=== PATIENT | female | born 2000 | race Caucasian/White ===

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

== ENCOUNTER 2022-02-06 07:15 | Emergency (ER) | payer BC, MEDICAID, SELFPAY ==
[2020-09-26 11:37] VITALS: BP 117/75; BMI 34.4
[2022-02-06 07:24] VITALS: BP 122/83; PULSE 84; RESP 15; TEMP 36.9; O2SAT 97
--- NOTE | 2022-02-06 07:47 | W.ED.EAR ---
HPI - Ear Problem General: Chief complaint: Ear Stated complaint: can barely speak Time Seen by Provider: 02/06/22 07:20 Source: patient Mode of arrival: ambulatory History of Present Illness: 22-year-old female presents to the emergency room with complaints of right ear pain. Patient states she has recurrent otitis media in the past. She also states it is causing discomfort radiating into her jaw on the right side. She has cotton in her ears when she arrives states she has not had any drainage but just having the cotton and seems to alleviate some of the discomfort. No fever sweats chills or rash no cough or shortness of breath MD Complaint: ear pain Location: right ear Duration: constant Severity: moderate Relieving factors: other (Cotton in the external canal) Exacerbating factors: nothing Discharge from ear: no Associated symptoms: Reports ear or mastoid pain and external ear pain; Denies fever(s), headache(s), hearing loss, neck pain, rhinorrhea or tinnitus Treatment prior to arrival: none Review of Systems Const: Denies: fever(s), chills, fatigue or malaise ENMT: Reports: ear or mastoid pain; Denies: tinnitus Card: Denies: chest pain, palpitations, irregular heart rhythm, edema, dyspnea on exertion or orthopnea Resp: Denies: dyspnea, productive cough or non-productive cough GI: Denies: abdominal pain, nausea, vomiting, hematemesis, coffee ground emesis, diarrhea, constipation, bloating, hematochezia or melena : Denies: flank pain, difficulty voiding, dysuria, urinary frequency or urinary urgency Musc: Denies: neck pain Skin/Breast: Denies: rash or pruritus Neuro: Denies: headache(s) PFSH ED PFSH: Medical History (Updated 02/06/22 @ 07:52 by Fredrick Gonzalez DO) Psychiatric care Family History (Updated 09/01/20 @ 09:05 by Jyoti Zhang RN) Other Cancer Diabetes Social History (Updated 09/01/20 @ 09:10 by Joyti Zhang RN) Smoking and tobacco status: former smoker Quit status (tobacco): has quit using tobacco Year quit tobacco: 2020 Second hand smoke exposure: Yes Alcohol intake: never Adopted: No Caregiver/support person: No Lives independently: Yes Household members: family Housing: House Marital status: Single Number of children: 0 Number of grandchildren: 0 Highest education level completed: 10th Grade service: No Current occupational status: unemployed Pets and animals: Yes Pets & animals: cat(s) and dog(s) Pets & animal details: gigi stone History of recent travel: No Leisure activites: other Leisure activities details: cleaning, takes care of her mom Current gender identity: Female Marsha/Uatsdin: None Financial difficulty paying for basics: Somewhat Hard Female Reproductive History: Date of last menstrual period: 06/24/20 Spontaneous abortions: No Physical Exam Const: COMMON NORMALS: no acute distress GENERAL APPEARANCE: cooperative and comfortable ORIENTATION/CONSCIOUSNESS: Yes awake, Yes oriented to person, Yes oriented to place and Yes oriented to time HENMT: COMMON NORMALS: normocephalic, atraumatic, hearing grossly normal bilaterally, external ears normal, EAC's normal, TM's normal bilaterally, Normal nasal mucous membranes and turbinates present, moist oral mucous membranes and oropharynx normal HEAD & SCALP: normocephalic and atraumatic NOSE: Normal nasal mucous membranes and turbinates present EXTERNAL EAR: Yes external ears normal EXTERNAL AUDITORY CANAL: EAC's normal TYMPANIC MEMBRANE: TM's normal bilaterally THROAT: posterior oropharynx abnormal erythema (Mild) Eye: COMMON NORMALS: Equal, round and reactive pupils present, EOMs intact bilaterally, conjunctivae normal and no scleral icterus CONJUNCTIVA: Yes conjunctivae normal PUPIL: Yes Equal, round and reactive pupils present Neck/C-Spine: COMMON NORMALS: full ROM, no lymphadenopathy, supple and no JVD Lymph: LYMPHATIC: no lymphadenopathy noted and no lymphedema noted Resp: COMMON NORMALS: normal respiratory effort, No retractions, No use of accessory muscles and clear to auscultation bilaterally AUSCULTATION: clear to auscultation bilaterally Cardio: COMMON NORMALS: no JVD, regular rate, regular rhythm and No murmurs present (Cardio) RATE: regular rate RHYTHM: regular rhythm Extremity: COMMON NORMALS: normal to inspection, capillary refill normal, no clubbing, cyanosis or edema, no calf tenderness and no pedal edema Neuro: SENSORIUM/ORIENTATION: Yes oriented to person, Yes oriented to place and Yes oriented to time Skin: COMMON NORMALS: no rashes or lesions noted GENERAL SKIN EXAM: no rashes or lesions noted Course Vital Signs: Vital signs: Vital Signs Temperature 98.4 F 12/20/22 07:24 Pulse Rate 84 02/06/22 07:24 Respiratory Rate 15 02/06/22 07:24 Blood Pressure 122/83 02/06/22 07:24 Pulse Oximetry 97 02/06/22 07:24 Oxygen Delivery Me thod 02/06/22 07:24 MDM - Ear Medical Decision Making Examination of the ears shows no evidence of otitis externa or otitis media. Initially patient was hesitant to open mouth citing pain. Rapid strep was negative. Repeat exam patient was able to fully open her jaw. There is no crepitus or deformity at the TMJ joint to the gumline is normal there are some mild redness the posterior pharyngeal wall but no evidence of abscess. Suspect is viral mediated pharyngitis supportive cares Medical Records I reviewed the patient's medical records. Lab Data I reviewed the patient's lab results. Laboratory Results Group A Strep Rapid Negative (Negative) 02/06/22 07:54 Discharge Plan Discharge Patient Disposition: Home Clinical Impression: Pharyngitis, Otalgia Condition: Stable Prescriptions: No Action cranberry extract 300 mg tablet 300 mg PO DAILY Rx Instructions: administer with a meal control PO DAILY Discharge Orders: Discharge ED (Routine); Ordered 02/06/22 Ordered By: Fredrick Gonzalez Referrals: Yvonne Ocasio FNP [Primary Care Provider] - Patient Instructions: Opioid Safety, Pain Management Activity Restrictions/Additional Instructions: You were seen today for right ear pain and sore throat. On exam the ear was normal examination throat there is mild redness but exam was not consistent with strep and a rapid strep was negative. There is no sign of dental infection. Suspect that this is mostly viral mediated. Tmls-gfu-ypsquwa cough cold remedies salt water gargles or wwzc-ddp-cucftpy throat lozenges or anesthetics as needed you can also use Tylenol or ibuprofen. Coding Level of Care Code ED Locomotive Crane Operator Helper for FranciscoJ Fwoneal Exam Comprehensive
[2022-02-06 08:13] LABS: Rapid Strep A Test Negative (Negative)
[2022-02-06 08:24] VITALS: PULSE 79; RESP 16; O2SAT 98
== END 2022-02-06 08:26 | disposition home or self-care (01) ==
PROVIDERS: Emergency Provider Family Medicine; PCP Nurse Practitioner Family
DX: H92.01 Otalgia, right ear (principal); J02.9 Acute pharyngitis, unspecified
CPT/HCPCS: 87081; 87880; 99283

== ENCOUNTER 2022-11-08 19:39 | Emergency (ER) | payer BC, MEDICAID, SELFPAY ==
[2020-09-26 11:37] VITALS: BP 117/75; BMI 34.4
[2022-11-08 19:44] VITALS: BP 126/82; PULSE 135; RESP 18; TEMP 38.8; O2SAT 97
--- NOTE | 2022-11-08 20:04 | XRR_ITS ---
PROCEDURE INFORMATION: Exam: XR Chest Exam date and time: 11/08/2022 8:11 PM Age: 22 years old Clinical indication: Fever and shortness of breath; Additional info: Fever shortness of breath TECHNIQUE: Imaging protocol: Radiologic exam of the chest. Views: 1 view. COMPARISON: CR XR abdomen min 2V [id number] 05/03/2020 2:00 AM FINDINGS: Lungs: Unremarkable. No consolidation. Pleural spaces: Unremarkable. No pleural effusion. No pneumothorax. Heart/Mediastinum: Unremarkable. No cardiomegaly. Bones/joints: Unremarkable. XR/XR chest 1V portable [id number] IMPRESSION: No acute findings.
[2022-11-08 20:29] VITALS: BP 149/95; PULSE 110; RESP 18; O2SAT 96
[2022-11-08 20:39] LABS: Basophils % 0.2 %; Eosinophils % 0.1 %; Hematocrit 37.8 % (36-47); Lymphocytes # 0.9 10^3/uL (1.5-6.5); Lymphocytes % 9.6 %; Mean Corpuscular HGB Conc 34.7 g/dL (30-55); Mean Corpuscular Hemoglobin 30.1 pg (27-33); Mean Corpuscular Volume 86.9 fl (85-98); Monocytes # 0.7 10^3/uL (0.2-0.9); Monocytes % 7.2 %; Neutrophils # 7.43 10^3/uL (1.8-8.0); Neutrophils % 82.6 %; Nucleated Red Blood Cells % 0 %; Platelet Count 253 10^3/cmm (157-399); Red Blood Count 4.35 10^6/uL (3.85-5.65); Red Cell Distribution Width 12.9 % (12.1-15.1)
[2022-11-08] MEDS: sodium chloride 0.9% 1,000 ML 999 ML IV (20:47)
[2022-11-08] MEDS: diphenhydrAMINE 50 mg/mL SDV 1mL IVP (20:48)
[2022-11-08] MEDS: ketorolac 30 mg/mL INJ IVP (20:49)
[2022-11-08] MEDS: metoclopramide 5 mg/mL SDV 2 mL 10 MG IVP (20:49)
[2022-11-08 20:55] LABS: Alanine Aminotransferase 12 U/L (0-33); Albumin Level 4.3 g/dL (3.5-5.2); Alkaline Phosphatase 69 U/L (35-105); Anion Gap 14.5 (5-19); Aspartate Amino Transferase 15 U/L (0-32); Blood Urea Nitrogen 6 mg/dL (6-20); Calcium 8.9 mg/dL (8.5-10.5); Carbon Dioxide 23 mmol/L (22-29); Chloride 102 mmol/L (98-107); Creatinine Clr Calc Pharmacy 149.8852; Globulin 2.6 g/dL (1.3-4.6); Glomerular Filtration Rate 127.5 mL/min (90-130); Glucose 105 mg/dL (65-115); Osmolality Calculated 280 mOsm/kg (285-295); Potassium 3.5 mmol/L (3.5-5.1); Sodium 136 mmol/L (136-145); Total Bilirubin 0.9 mg/dL (0.15-1.2); Total Protein 6.9 g/dL (6.6-8.7)
--- NOTE | 2022-11-08 21:44 | ED_ITS ---
HPI - SOB/Dyspnea General: Chief Complaint: Headache Stated Complaint: fever/migraine Time Seen by Provider: 11/08/22 19:52 History of Present Illness: HPI Narrative: Patient presents ER with complaints of fever headache weakness and shortness of breath this all started about 7 PM last night. Is got worse throughout the day. Patient does have a history of headaches similar to these but usually does not cause tachycardia or fever. Patient's boyfriend had similar episodes which lasted for 24 hours but he is now better. Review of Systems General: Reports: 10 or more systems reviewed and unremarkable except in HPI and below PFSH ED PFSH: Family History Other Cancer Diabetes Social History Smoking and tobacco status: former smoker Quit status (tobacco): has quit using tobacco Year quit tobacco: 2020 Second hand smoke exposure: Yes Alcohol intake: never Substance/Drug Use: never Adopted: No Caregiver/support person: No Lives independently: Yes Household members: family Housing: House Marital status: Single Number of children: 0 Number of grandchildren: 0 Highest education level completed: 10th Grade service: No Current occupational status: unemployed Pets and animals: Yes Pets & animals: cat(s) and dog(s) Pets & animal details: chase, gigi wilson Leisure activites: other Leisure activities details: cleaning, takes care of her mom Do you think of yourself as: Straight/Heterosexual Current gender identity: Female Marsha/Faith: None Financial difficulty paying for basics: Somewhat Hard Female Reproductive History: Spontaneous abortions: No Physical Exam Const: COMMON NORMALS: no acute distress, average body habitus, patient orie nted x3, no limitations, healthy appearing, alert and well nourished HENMT: COMMON NORMALS: normocephalic, atraumatic, hearing grossly normal bila terally, external ears normal, Normal external nose present and moist oral mucous membranes HEAD & SCALP: normocephalic and atraumatic NOSE: Normal external nose present EXTERNAL EAR: Yes external ears normal Eye: COMMON NORMALS: Equal, round and reactive pupils present, EOMs intact bilaterally, conjunctivae normal and no scleral icterus CONJUNCTIVA: Yes conjunctivae normal PUPIL: Yes Equal, round and reactive pupils present Neck/C-Spine: COMMON NORMALS: full ROM, no lymphadenopathy, supple, no meningeal signs, no JVD and Thyroid normal THYROID: Thyroid normal Lymph: LYMPHATIC: no lymphadenopathy noted Chest: COMMONS NORMALS: normal inspection of the chest and normal palpation of entire chest wall Resp: COMMON NORMALS: normal respiratory effort, No retractions, No use of accessory muscles and clear to auscultation bilaterally AUSCULTATION: clear to auscultation bilaterally Cardio: COMMON NORMALS: no JVD, regular rhythm, S1 normal heart sound present, S2 normal heart sound present, No gallops present (Cardio), No clicks present (Cardio), No murmurs present (Cardio) and No rub (Cardio); negative for regular rate (Tachycardic) RATE: abnormal rate (Tachycardic) RHYTHM: regular rhythm HEART SOUNDS: S1 normal heart sound present and S2 normal heart sound present GI: COMMON NORMALS: Normal to inspection, nondistended, normoactive bowel sounds present, Soft to palpation, non-tender, No hepatosplenomegaly present and no masses PALPATION: Yes Soft to palpation and Yes No hepatosplenomegaly present : COMMON NORMALS: Yes no CVA tenderness BLADDER/KIDNEY EXAM: Yes no CVA tenderness Back/Pelvis: COMMON NORMALS: no CVA tenderness Neuro: COMMON NORMALS: patient oriented x3 SENSORIUM/ORIENTATION: Yes alert MENINGEAL SIGNS: Yes no meningeal signs Course Vital Signs: Vital signs: Vital Signs Temperature 102 F H 11/08/22 19:44 Pulse Rate 83 11/08/22 22:04 Respiratory Rate 18 11/08/22 22:04 Blood Pressure 149/95 11/08/22 20:29 Pulse Oximetry 99 11/08/22 22:04 Oxygen Delivery Me thod Room Air 11/08/22 22:04 MDM - SOB/Dyspnea Medical Decision Making Presented with tachycardia headache and fever. Patient was given 1 L normal saline bolus, Reglan 10 mg, Toradol 30 mg, Benadryl 50 mg, lab work was obtained as well as chest x-ray all of which was benign. COVID-negative. Patient is feeling much better heart rate come down to normal and patient is afebrile. Patient be discharged home with a diagnosis of headache and viral syndrome. She should follow-up with her family practice doctor within the next 7 days. Differential Diagnosis Unlikely acute exacerbation of chronic obstructive airways disease, congestive heart failure, community acquired pneumonia, asthma with exacerbation or pulmonary embolism Medical Records I reviewed the patient's medical records. Lab Data I reviewed the patient's lab results. 11/08/22 20:11/08/22 20: Labs/Radiology: Radiology Impressions Chest X-Ray 11/08/22 20: IMPRESSION: No acute findings. Laboratory Results WBC 9.00 10^3/uL (4.5-13.0) 11/08/22 20: RBC 4.35 10^6/uL (3.85-5.65) 11/08/22 20: Hgb 13.10 g/dL (12.4-14.8) 11/08/22: Hct 37.8 % (36-47) 11/08/22: MCV 86.9 fl (85-98) 11/08/22: MCH 30.1 pg (27-33) 11/08/22: MCHC 34.7 g/dL (30-55) 11/08/22: RDW 12.9 % (12.1-15.1) 11/08/22: Plt Count 253 10^3/cmm (157-399) 11/08/22: MPV 10.0 fL (7.4-10.4) 11/08/22: Neut % (Auto) 82.6 % 11/08/22: Lymph % (Auto) 9.6 % 11/08/22: [place] % (Auto) 7.2 % 11/08/22: Eos % (Auto) 0.1 % 11/08/22: Baso % (Auto) 0.2 % 11/08/22: Neut # (Auto) 7.43 10^3/uL (1.8-8.0) 11/08/22: Lymph # (Auto) 0.9 10^3/uL (1.5-6.5) L 11/08/22: [place] # (Auto) 0.7 10^3/uL (0.2-0.9) 11/08/22 20: Eos # (Auto) 0.0 10^3/uL (0.0-0.8) 11/08/22 20:27 Baso # (Auto) 0.0 10^3/uL (0.0-0.1) 11/08/22 20: Nucleated RBC % (auto) 0 % 11/08/22 20: Nucleated RBCs # 0.0 /100WBC 11/08/22 20:27 Sodium 136 mmol/L (136-145) 11/08/22 20: Potassium 3.5 mmol/L (3.5-5.1) 11/08/22 20: Chloride 102 mmol/L (98-107) 11/08/22 20: Carbon Dioxide 23 mmol/L (22-29) 11/08/22 20:27 Anion Gap 14.5 (5-19) 11/08/22 20: BUN 6 mg/dL (6-20) 11/08/22 20: Creatinine 0.6 mg/dL (0.5-0.9) 11/08/22 20: GFR Calculation 127.5 mL/min (90-130) 11/08/22 20: Glucose 105 mg/dL (65-115) 11/08/22 20: Calculated Osmolality 280 mOsm/kg (285-295) L 11/08/22 20: Calcium 8.9 mg/dL (8.5-10.5) 11/08/22 20: Total Bilirubin 0.9 mg/dL (0.15-1.2) 11/08/22 20:27 AST 15 U/L (0-32) 11/08/22 20: ALT 12 U/L (0-33) 11/08/22 20: Alkaline Phosphatase 69 U/L (35-105) 11/08/22 20: Total Protein 6.9 g/dL (6.6-8.7) 11/08/22 20: Albumin 4.3 g/dL (3.5-5.2) 11/08/22 20: Globulin 2.6 g/dL (1.3-4.6) 11/08/22 20:27 SARS-CoV-2 Ag (Rapid) negative (Negative) 11/08/22 22:06 All radiology interpretation(s) finalized by discharge EKG Data EKG 1: I personally reviewed and interpreted this EKG as follows: EKG Interpretation Date: 11/08/22 EKG interpretation time: 21:56 Prior EKG tracings: not available for review Interpretation: EKG showed ventricular rate 90 bpm, OR interval 144, QRS duration 88, QTc 394, sinus rhythm, nonspecific T wave abnormality, Discharge Plan Discharge Patient Disposition: Home Clinical Impression: Viral syndrome Migraine Qualifiers: Migraine type: unspecified Status migrainosus presence: without status migrainosus Intractability: not intractable Qualified Code(s): G43.909 - Migraine, unspecified, not intractable, without status migrainosus Condition: Stable Prescriptions: No Action cranberry extract 300 mg tablet 300 mg PO DAILY Rx Instructions: administer with a meal control PO DAILY amoxicillin-pot clavulanate 875-125 mg tablet 1 tab PO BID 5 Days Qty: 10 0RF Discharge Orders: Discharge ED (Routine); Ordered 11/08/22 Ordered By: Erick Yee Referrals: Yvonne Ocasio FNP [Primary Care Provider] - 1 week Patient Instructions: Migraine Headache (ED), Viral Syndrome - Adult Activity Restrictions/Additional Instructions: Please push plenty of fluids. Please take [id number] Tylenol and Motrin as needed for. Please follow-up with your family practice doctor the next 7 days for further evaluation and treatment. Coding Level of Care Code ED Medical Supervisor for Francisco J Waller
[2022-11-08 21:45] VITALS: PULSE 81; RESP 18; O2SAT 99
--- NOTE | 2022-11-08 21:56 | ECG_ITS ---
[facility] Test Date: 2022-11-08 Pat Name: Suzanna Quezada Department: Room: Gender: Female Quality Compliance Manager: : 2000 Requested By: Erick Yee Order Number: [id number] Roselia MD: Heri Maher M.D. Measurements Intervals [place] Rate: 90 P: 62 SC: 144 QRS: 32 QRSD: 88 T: 28 QT: 346 QTc: 425 Interpretive Statements SINUS RHYTHM NONSPECIFIC T-WAVE ABNORMALITY No previous ECG available for comparison Electronically Signed On 11-08-2022 22:55:56 CDT by Heri Maher M.D. [email or web address]
[2022-11-08 22:04] VITALS: PULSE 83; RESP 18; O2SAT 99
[2022-11-08 22:24] LABS: SARS Covid-2 Antigen negative (Negative)
== END 2022-11-08 22:51 | disposition home or self-care (01) ==
PROVIDERS: Emergency Provider Emergency Medicine; PCP Nurse Practitioner Family
DX: G43.909 Migraine, unspecified, not intractable, without status migrainosus (principal); B34.9 Viral infection, unspecified; Z87.891 Personal history of nicotine dependence; Z20.822 Contact with and (suspected) exposure to COVID-19
CPT/HCPCS: 36415; 71045; 80053; 85025; 87426; 93005; 96374; 96375; 99285; J1200; J1885; J2765; J7030

== ENCOUNTER 2023-04-12 00:30 | Emergency (ER) | payer BC, MEDICAID, SELFPAY ==
[2020-09-26 11:37] VITALS: BP 117/75; BMI 34.4
[2023-04-12 00:35] VITALS: BP 113/61; PULSE 84; RESP 16; TEMP 36.6; O2SAT 97; BMI 34.7
--- NOTE | 2023-04-12 00:41 | W.ED.ABDPA2 ---
HPI - Abdominal Pain General: Chief Complaint: Abdominal Pain Stated Complaint: vomiting, stomach pain Time Seen by Provider: 04/12/23 00:40 History of Present Illness: 23-year-old female presents to the emergency department with complaints of epigastric pain that began earlier tonight. She states she had 3 episodes of nausea and vomiting and states that she will receive temporary relief after the third time she vomited. She states she has had abdominal pain in the past and has been seen by her primary care provider and was told that she had a lot of constipation that was causing her abdominal pain. She denies any surgery history and states that she had her menstrual cycle approximately 1 week ago. She denies fevers chills or night sweats. She states her epigastric pain initially was a 4 out of 10 and at present it is a 2 out of 10. She denies hematic emesis or hematochezia. Associated Symptoms: Reports nausea and vomiting Related Data: Date of Last Menstrual Period: 04/05/23 Review of Systems General: Reports: 10 or more systems reviewed and unremarkable except in HPI and below GI: Reports: abdominal pain, nausea and vomiting PFSH ED PFSH: Family History Other Cancer Diabetes Social History Smoking and tobacco/nicotine status: former use of tobacco/nicotine Quit status (tobacco/nicotine): has quit using Year quit tobacco: 2020 Second hand smoke exposure: Yes Alcohol intake: never Substance/Drug Use: never Adopted: No Caregiver/support person: No Lives independently: Yes Household members: family Housing: House Marital status: Single Number of children: 0 Number of grandchildren: 0 Highest education level completed: 10th Grade service: No Current occupational status: unemployed Pets and animals: Yes Pets & animals: cat(s) and dog(s) Pets & animal details: jenifercy, gigi wilson Leisure activites: other Leisure activities details: cleaning, takes care of her mom Do you think of yourself as: Straight/Heterosexual Current gender identity: Female Marsha/Pentecostal: None Female Reproductive History: Date of last menstrual period: 04/05/23 Spontaneous abortions: No Physical Exam Const: COMMON NORMALS: no acute distress, patient oriented x3 and alert HENMT: COMMON NORMALS: normocephalic, atraumatic, hearing grossly normal bilaterally, Normal external nose present and moist oral mucous membranes HEAD & SCALP: normocephalic and atraumatic NOSE: Normal external nose present Eye: COMMON NORMALS: Equal, round and reactive pupils present and EOMs intact bilaterally PUPIL: Yes Equal, round and reactive pupils present Neck/C-Spine: COMMON NORMALS: full ROM, no lymphadenopathy, supple and no meningeal signs Resp: COMMON NORMALS: normal respiratory effort, No use of accessory muscles and clear to auscultation bilaterally AUSCULTATION: clear to auscultation bilaterally Cardio: COMMON NORMALS: regular rate, regular rhythm, S1 normal heart sound present and S2 normal heart sound present RATE: regular rate RHYTHM: regular rhythm HEART SOUNDS: S1 normal heart sound present and S2 normal heart sound present GI: COMMON NORMALS: Soft to palpation INSPECTION: Yes normal to inspection AUSCULTATION: Yes normoactive bowel sounds PALPATION: Yes Soft to palpation and Yes Tenderness to palpation present (GI) Details: other (Epigastric tenderness to palpation) : COMMON NORMALS: Yes no CVA tenderness BLADDER/KIDNEY EXAM: Yes no CVA tenderness Back/Pelvis: COMMON NORMALS: no CVA tenderness and thoracic and lumbar spine normal to inspection Extremity: COMMON NORMALS: normal to inspection, full ROM and capillary refill normal Neuro: COMMON NORMALS: patient oriented x3 SENSORIUM/ORIENTATION: Yes alert MENINGEAL SIGNS: Yes no meningeal signs Psych: COMMON NORMALS: mental status grossly normal, Normal thought process present and cooperative THOUGHT PROCESS: Normal thought process present Skin: COMMON NORMALS: no rashes or lesions noted and no wounds GENERAL SKIN EXAM: no rashes or lesions noted Course Vital Signs: Vital signs: Vital Signs Temperature 97.8 F 04/12/23 00:35 Pulse Rate 84 04/12/23 00:35 Respiratory Rate 16 04/12/23 00:35 Blood Pressure 113/61 04/12/23 00:35 Pulse Oximetry 97 04/12/23 00:35 MDM - Abdominal Pain Medical Decision Making Physical exam completed and documented, I will obtain laboratory evaluation to include a CBC, CMP, lipase, urinalysis, and a CT scan of the patient's abdomen pelvis to evaluate for possible differential diagnosis of bowel obstruction, constipation, possible colitis, acute appendicitis, diverticulitis, pancreatitis, gastroenteritis. I will provide a GI cocktail for pain relief. Medical Records I reviewed the patient's medical records. Lab Data I reviewed the patient's lab results. 04/12/23 00:49 04/12/23 00:49 Labs/Radiology: Laboratory Results WBC 7.46 10^3/uL (3.29-11.43) 04/12/23 00:49 RBC 4.10 10^6/uL (3.85-5.65) 04/12/23 00:49 Hgb 12.20 g/dL (11.27-16.99) 04/12/23 00:49 Hct 35.5 % (36-47) L 04/12/23 00:49 MCV 86.6 fl (85-98) 04/12/23 00:49 MCH 29.8 pg (27-33) 04/12/23 00:49 MCHC 34.4 g/dL (30-55) 04/12/23 00:49 RDW 12.5 % (12.1-15.1) 04/12/23 00:49 Plt Count 257 10^3/cmm (157-399) 04/12/23 00:49 MPV 10.0 fL (7.4-10.4) 04/12/23 00:49 Neut % (Auto) 54.5 % 04/12/23 00:49 Lymph % (Auto) 36.1 % 04/12/23 00:49 [place] % (Auto) 5.8 % 04/12/23 00:49 Eos % (Auto) 2.8 % 04/12/23 00:49 Baso % (Auto) 0.5 % 04/12/23 00:49 Neut # (Auto) 4.07 10^3/uL (1.8-7.7) 04/12/23 00:49 Lymph # (Auto) 2.7 10^3/uL (0.8-4.8) 04/12/23 00:49 [place] # (Auto) 0.4 10^3/uL (0.2-0.9) 04/12/23 00:49 Eos # (Auto) 0.2 10^3/uL (0.0-0.8) 04/12/23 00:49 Baso # (Auto) 0.0 10^3/uL (0.0-0.1) 04/12/23 00:49 Nucleated RBC % (auto) 0 % 04/12/23 00:49 Nucleated RBCs # 0.0 /100WBC 04/12/23 00:49 Sodium 139 mmol/L (136-145) 04/12/23 00:49 Potassium 3.5 mmol/L (3.5-5.1) 04/12/23 00:49 Chloride 102 mmol/L (98-107) 04/12/23 00:49 Carbon Dioxide 25 mmol/L (22-29) 04/12/23 00:49 Anion Gap 15.5 (5-19) 04/12/23 00:49 BUN 10 mg/dL (6-20) 04/12/23 00:49 Creatinine 0.6 mg/dL (0.5-0.9) 04/12/23 00:49 GFR Calculation 126.2 mL/min (90-130) 04/12/23 00:49 Glucose 125 mg/dL (65-115) H 04/12/23 00:49 Calculated Osmolality 289 mOsm/kg (285-295) 04/12/23 00:49 Calcium 8.7 mg/dL (8.5-10.5) 04/12/23 00:49 Total Bilirubin 0.7 mg/dL (0.15-1.2) 04/12/23 00:49 AST 62 U/L (0-32) H 04/12/23 00:49 ALT 32 U/L (0-33) 04/12/23 00:49 Alkaline Phosphatase 74 U/L (35-105) 04/12/23 00:49 Total Protein 6.4 g/dL (6.6-8.7) L 04/12/23 00:49 Albumin 4.1 g/dL (3.5-5.2) 04/12/23 00:49 Globulin 2.3 g/dL (1.3-4.6) 04/12/23 00:49 Lipase 23 U/L (13-60) 04/12/23 00:49 HCG, Qual Negative (Negative) 04/12/23 01:02 Urine Color Yellow (Yellow) 04/12/23 01:02 Urine Appearance Clear (CLEAR) 04/12/23 01:02 Urine pH 6 (5-7) 04/12/23 01:02 Ur Specific [place] 1.010 (1.005-1.030) 04/12/23 01:02 Urine Protein Neg (Negative) 04/12/23 01:02 Urine Glucose (UA) Norm (Normal) 04/12/23 01:02 Urine Ketones Negative (Negative) 04/12/23 01:02 Urine Blood Neg (Negative) 04/12/23 01:02 Urine Nitrate Negative (Negative) 04/12/23 01:02 Urine Bilirubin Neg (Negative) 04/12/23 01:02 Urine Urobilinogen 1 mg/dL (Negative) H 04/12/23 01:02 Ur Leukocyte Esterase Negative (Negative) 04/12/23 01:02 Ethyl Alcohol < 10 mg/dL (0-10) 04/12/23 00:49 All radiology interpretation(s) finalized by discharge Discharge Plan Discharge Patient Disposition: Home Clinical Impression: Constipation, Abdominal pain Condition: Stable Prescriptions: No Action cranberry extract 300 mg tablet 300 mg PO DAILY Rx Instructions: administer with a meal control PO DAILY amoxicillin-pot clavulanate 875-125 mg tablet 1 tab PO BID 5 Days Qty: 10 0RF Discharge Orders: Discharge ED (Routine); Ordered 04/12/23 Ordered By: Glen Root Referrals: Yvonne Ocasio FNP [Primary Care Provider] - Discharge Diet: Usual diet Discharge Activity: Increase activity as tolerated Patient Instructions: Abdominal Pain (ED), Opioid Safety, Pain Management Activity Restrictions/Additional Instructions: Activity Restrictions/Additional Instructions: Thank you for choosing [facility] for your healthcare needs today. Please realize that you were seen in the Emergency Department and that we are providing you with an emergency medical screening exam and this may not be a complete and all inclusive of all the testing and or medical work-up that you may need to determine your ailment or severity of your illness. It is very important that you follow-up as instructed with your Primary care provider or Specialist for additional evaluation and to discuss your medical treatment plan. You may return to the Emergency Department should you have concerns or if your condition changes or worsens in any way. Coding Level of Care Code ED Electronics Technology Instructor for Francisco J Waller
[2023-04-12 01:00] LABS: Basophils % 0.5 %; Eosinophils # 0.2 10^3/uL (0.0-0.8); Eosinophils % 2.8 %; Hematocrit 35.5 % (36-47); Lymphocytes # 2.7 10^3/uL (0.8-4.8); Lymphocytes % 36.1 %; Mean Corpuscular HGB Conc 34.4 g/dL (30-55); Mean Corpuscular Hemoglobin 29.8 pg (27-33); Mean Corpuscular Volume 86.6 fl (85-98); Monocytes # 0.4 10^3/uL (0.2-0.9); Monocytes % 5.8 %; Neutrophils # 4.07 10^3/uL (1.8-7.7); Neutrophils % 54.5 %; Nucleated Red Blood Cells % 0 %; Platelet Count 257 10^3/cmm (157-399); Red Cell Distribution Width 12.5 % (12.1-15.1); White Blood Count 7.46 10^3/uL (3.29-11.43)
[2023-04-12 01:06] LABS: Add Urine Microscopic? NO; Charge for UA Resulting for Rev
[2023-04-12] MEDS: lidocaine 2% viscous 15 ML, aluminum-mag hydrox-simethicon 30 ML, sucralfate oral liq 1 GM PO (01:09)
[2023-04-12 01:17] LABS: Bilirubin Urine Neg (Negative); Blood Urine Neg (Negative); Glucose Urine UA Norm (Normal); Ketones Urine Negative (Negative); Leukocyte Esterase Urine Negative (Negative); Nitrate Urine Negative (Negative); Protein Urine Neg (Negative); Urine Appearance Clear (CLEAR); Urine Color Yellow (Yellow); Urobilinogen Urine 1 mg/dL (Negative); pH Urine 6 (5-7)
[2023-04-12 01:18] LABS: HCG Qualitative Urine. Negative (Negative)
--- NOTE | 2023-04-12 01:24 | XRR_ITS ---
PROCEDURE INFORMATION: Exam: XR Abdomen Exam date and time: 04/12/2023 1:30 AM Age: 23 years old Clinical indication: Abdominal pain; Localized; Upper; Additional info: Abd pain TECHNIQUE: Imaging protocol: Radiologic exam of the abdomen. Views: Frontal supine view of the abdomen. 1 View. COMPARISON: CR XR abdomen min 2V [id number] 05/03/2020 2:00 AM FINDINGS: Gastrointestinal tract: No small bowel dilation or free air identified. Bones/joints: Unremarkable. XR/XR abdomen 1V* [id number] IMPRESSION: No acute findings.
[2023-04-12 01:29] LABS: Alanine Aminotransferase 32 U/L (0-33); Albumin Level 4.1 g/dL (3.5-5.2); Alcohol Level < 10 mg/dL (0-10); Alkaline Phosphatase 74 U/L (35-105); Anion Gap 15.5 (5-19); Aspartate Amino Transferase 62 U/L (0-32); Blood Urea Nitrogen 10 mg/dL (6-20); Calcium 8.7 mg/dL (8.5-10.5); Carbon Dioxide 25 mmol/L (22-29); Chloride 102 mmol/L (98-107); Creatinine Clr Calc Pharmacy 151.1003; Globulin 2.3 g/dL (1.3-4.6); Glomerular Filtration Rate 126.2 mL/min (90-130); Glucose 125 mg/dL (65-115); Lipase 23 U/L (13-60); Osmolality Calculated 289 mOsm/kg (285-295); Potassium 3.5 mmol/L (3.5-5.1); Sodium 139 mmol/L (136-145); Total Bilirubin 0.7 mg/dL (0.15-1.2); Total Protein 6.4 g/dL (6.6-8.7)
[2023-04-12 02:13] VITALS: BP 103/48; PULSE 65; RESP 16; O2SAT 99
[2023-04-12 02:14] VITALS: BP 103/48; PULSE 65; RESP 16; TEMP 36.6; O2SAT 99
== END 2023-04-12 02:14 | disposition home or self-care (01) ==
PROVIDERS: Emergency Provider Internal Medicine; PCP Nurse Practitioner Family
DX: K59.00 Constipation, unspecified (principal); Z87.891 Personal history of nicotine dependence
CPT/HCPCS: 74018; 80053; 80307; 81003; 81025; 83690; 85025; 99284

== ENCOUNTER 2023-10-08 17:36 | Emergency (ER) | payer BC, MEDICAID, SELFPAY ==
[2020-09-26 11:37] VITALS: BP 117/75; BMI 34.4
[2023-10-08 17:50] VITALS: BP 129/87; PULSE 104; RESP 16; TEMP 36.8; O2SAT 97; BMI 26.4
--- NOTE | 2023-10-08 18:27 | W.ED.NAVMDI ---
HPI - Nausea/Vomiting/Diarrhea General: Chief complaint: Nausea/Vomiting/Diarrhea Stated complaint: Vomiting, can't eat, stomach pain Time Seen by Provider: 10/08/23 18:10 Source: patient Mode of arrival: ambulatory Limitations: no limitations History of Present Illness: Patient is a 23-year-old female presenting to the emergency department complaining of nausea and vomiting for the past 2 weeks. States she is also lost 25 pounds during this timeframe. She reports abdominal cramping and back pain, states that she had 1 episode of vaginal bleeding, however states that this was not her period and has been 2 weeks late. She has been afraid to take home test that she thinks that may be positive. Also confirms possibility of . States that her vomit has been stomach acid. Denies any change in bowel habits. She does state that the abdominal pain is diffuse and mild. She is a chronic marijuana smoker. No pertinent past medical history to report. MD elicited complaint: nausea and vomiting Onset (ago): week(s) Description of vomiting: bilious Associated nausea: Yes Associated abdominal pain: Yes Location of pain: Diffuse Pain consistency: intermittent Severity: mild Quality: cramping Context: marijuana use Associated symtoms: Reports nausea; Denies chest pain, diaphoresis, dizziness, dysuria, headache(s) or palpitations Related Data Home Medications Medication Instructions Recorded Confirmed cranberry extract 300 mg tablet 300 mg PO DAILY 09/01/20 02/06/22 control PO DAILY 12/02/20 02/06/22 Previous Rx's Medication Instructions Recorded amoxicillin 875 mg-potassium 1 tab PO BID 5 days #10 tabs 02/06/22 clavulanate 125 mg tablet ondansetron HCl 4 mg tablet 4 mg PO Q8H #30 tabs 10/08/23 Allergies Allergy/AdvReac Type Severity Reaction Status Date / Time prazosin Allergy Severe ADR-Chest Verified 11/08/22 19:51 Pain Review of Systems General: Reports: 10 or more systems reviewed and unremarkable except in HPI and below Const: Reports: change in appetite and change in weight; Denies: fever(s), chills or diaphoresis ENMT: Denies: throat pain or hoarseness Card: Denies: chest pain, palpitations or lightheadedness Resp: Denies: dyspnea, productive cough or wheezing GI: Reports: abdominal pain, nausea and vomiting; Denies: hematemesis, diarrhea or constipation : Denies: flank pain, difficulty voiding, dysuria, urinary frequency or urinary urgency Musc: Reports: back pain; Denies: neck pain Skin/Breast: Denies: rash or new lesions Neuro: Denies: headache(s) or dizziness PFSH ED PFSH: Family History Other Cancer Diabetes Social History Smoking and tobacco/nicotine status: former use of tobacco/nicotine Quit status (tobacco/nicotine): has quit using Year quit tobacco: 2020 Second hand smoke exposure: Yes Alcohol intake: never Substance/Drug Use: never Adopted: No Caregiver/support person: No Lives independently: Yes Household members: family Housing: House Marital status: Single Number of children: 0 Number of grandchildren: 0 Highest education level completed: 10th Grade service: No Current occupational status: unemployed Pets and animals: Yes Pets & animals: cat(s) and dog(s) Pets & animal details: chase, bearmarcos feldmanon Leisure activites: other Leisure activities details: cleaning, takes care of her mom Do you think of yourself as: Straight/Heterosexual Current gender identity: Female Marsha/Latter-Day: None Female Reproductive History: Spontaneous abortions: No Physical Exam Const: COMMON NORMALS: no acute distress, average body habitus, patient oriented x3, no limitations, healthy appearing, alert and well nourished GENERAL APPEARANCE: cooperative and comfortable ORIENTATION/CONSCIOUSNESS: Yes awake HENMT: COMMON NORMALS: normocephalic, atraumatic, hearing grossly normal bilaterally, external ears normal, Normal external nose present, Normal nasal mucous membranes and turbinates present and moist oral mucous membranes HEAD & SCALP: normocephalic and atraumatic NOSE: Normal external nose present and Normal nasal mucous membranes and turbinates present EXTERNAL EAR: Yes external ears normal Eye: COMMON NORMALS: Equal, round and reactive pupils present, EOMs intact bilaterally, conjunctivae normal and normal visual low by confrontation CONJUNCTIVA: Yes conjunctivae normal PUPIL: Yes Equal, round and reactive pupils present Neck/C-Spine: COMMON NORMALS: full ROM, supple, no meningeal signs and no JVD Resp: COMMON NORMALS: normal respiratory effort, No retractions, No use of accessory muscles and clear to auscultation bilaterally AUSCULTATION: clear to auscultation bilaterally, no crackles, no rales, no rhonchi and no wheezes Cardio: COMMON NORMALS: no JVD, regular rate, regular rhythm, S1 normal heart sound present, S2 normal heart sound present, No gallops present (Cardio), No clicks present (Cardio), No murmurs present (Cardio), No rub (Cardio) and Peripheral pulses 2+ throughout RATE: regular rate RHYTHM: regular rhythm HEART SOUNDS: S1 normal heart sound present and S2 normal heart sound present PERIPHERAL PULSES: Peripheral pulses 2+ throughout GI: COMMON NORMALS: Normal to inspection, nondistended, normoactive bowel sounds present, Soft to palpation, non-tender, No hepatosplenomegaly present and no masses AUSCULTATION: Yes normoactive bowel sounds PALPATION: Yes Soft to palpation, No Guarding due to palpation present (GI), No Rigid due to palpation and Yes No hepatosplenomegaly present RECTAL EXAM: deferred : COMMON NORMALS: Yes no CVA tenderness BLADDER/KIDNEY EXAM: Yes no CVA tenderness Back/Pelvis: COMMON NORMALS: no CVA tenderness Extremity: COMMON NORMALS: normal to inspection and full ROM Neuro: COMMON NORMALS: patient oriented x3, moves all extremities, no focal motor deficits and no sensory deficits noted SENSORIUM/ORIENTATION: Yes alert MENINGEAL SIGNS: Yes no meningeal signs Psych: COMMON NORMALS: mental status grossly normal, cooperative and speech normal SPEECH: Yes normal speech Skin: COMMON NORMALS: no rashes or lesions noted GENERAL SKIN EXAM: no rashes or lesions noted Course Vital Signs: Vital signs: Vital Signs Temperature 98.3 F 10/08/23 17:50 Pulse Rate 88 10/08/23 18:40 Respiratory Rate 16 10/08/23 17:50 Blood Pressure 146/104 10/08/23 18:40 Pulse Oximetry 98 10/08/23 18:40 Oxygen Delivery Me thod Room Air 10/08/23 18:40 MDM - Nausea/Vomiting/Diarrhea Medical Decision Making Patient presented for a couple weeks of nausea and vomiting. Is a chronic marijuana user, but also states that there is a possibility of and she was too afraid to take test at home. On arrival her vitals were unremarkable, physical exam overall also unremarkable. She was started on fluids and given Zofran for nausea. Her CMP showed signs of a mild dehydration, and her serum test was positive. This does explain pretty much all of her symptoms and she is informed to follow-up with primary care to establish with OB. She will be given Zofran for nausea and encouraged to increase her fluid intake at home. She feels comfortable with discharge at this time as she feels better after receiving IV fluids, and return precautions given. Lab Data 10/08/23 18:32 10/08/23 18:32 Laboratory Results WBC 11.82 10^3/uL (3.29-11.43) H 10/08/23 18:32 RBC 4.65 10^6/uL (3.85-5.65) 10/08/23 18: Hgb 13.80 g/dL (11.27-16.99) 10/08/23 18:32 Hct 40.2 % (36-47) 10/08/23 18: MCV 86.5 fl (85-98) 10/08/23 18:32 MCH 29.7 pg (27-33) 10/08/23 18:32 MCHC 34.3 g/dL (30-55) 10/08/23 18:32 RDW 12.7 % (12.1-15.1) 10/08/23 18: Plt Count 491 10^3/cmm (157-399) H 10/08/23 18:32 MPV 9.0 fL (7.4-10.4) 10/08/23 18: Neut % (Auto) 75.6 % 10/08/23 18: Lymph % (Auto) 18.9 % 10/08/23 18:32 [place] % (Auto) 4.9 % 10/08/23 18:32 Eos % (Auto) 0.1 % 10/08/23 18: Baso % (Auto) 0.2 % 10/08/23 18: Neut # (Auto) 8.94 10^3/uL (1.8-7.7) H 10/08/23 18:32 Lymph # (Auto) 2.2 10^3/uL (0.8-4.8) 10/08/23 18:32 [place] # (Auto) 0.6 10^3/uL (0.2-0.9) 10/08/23 18:32 Eos # (Auto) 0.0 10^3/uL (0.0-0.8) 10/08/23 18:32 Baso # (Auto) 0.0 10^3/uL (0.0-0.1) 10/08/23 18:32 Nucleated RBC % (auto) 0 % 10/08/23 18:32 Nucleated RBCs # 0.0 /100WBC 10/08/23 18:32 Sodium 133 mmol/L (136-145) L 10/08/23 18:32 Potassium 3.9 mmol/L (3.5-5.1) 10/08/23 18:32 Chloride 94 mmol/L (98-107) L 10/08/23 18:32 Carbon Dioxide 21 mmol/L (22-29) L 10/08/23 18:32 Anion Gap 21.9 (5-19) H 10/08/23 18:32 BUN 9 mg/dL (6-20) 10/08/23 18:32 Creatinine 0.5 mg/dL (0.5-0.9) 10/08/23 18:32 GFR Calculation 155.7 mL/min (90-130) H 10/08/23 18:32 Glucose 79 mg/dL (65-115) 10/08/23 18:32 Calculated Osmolality 274 mOsm/kg (285-295) L 10/08/23 18:32 Calcium 10.1 mg/dL (8.5-10.5) 10/08/23 18:32 Total Bilirubin 1.0 mg/dL (0.15-1.2) 10/08/23 18:32 AST 22 U/L (0-32) 10/08/23 18:32 ALT 23 U/L (0-33) 10/08/23 18:32 Alkaline Phosphatase 65 U/L (35-105) 10/08/23 18:32 Total Protein 8.1 g/dL (6.6-8.7) 10/08/23 18:32 Albumin 4.6 g/dL (3.5-5.2) 10/08/23 18:32 Globulin 3.5 g/dL (1.3-4.6) 10/08/23 18:32 Lipase 15 U/L (13-60) 10/08/23 18:32 HCG, Qual Positive (Negative) H 10/08/23 18:32 Amorphous Sediment Not Reportable 10/08/23 19:38 No radiology studies performed this visit Discharge Plan Discharge Patient Disposition: Home Clinical Impression: Dehydration Qualifiers: Weeks of gestation: unspecified Qualified Code(s): Z34.90 - Encounter for supervision of normal , unspecified, unspecified trimester Condition: Stable Prescriptions: New ondansetron HCl 4 mg tablet 4 mg PO Q8H Qty: 30 0RF No Action cranberry extract 300 mg tablet 300 mg PO DAILY Rx Instructions: administer with a meal control PO DAILY amoxicillin-pot clavulanate 875-125 mg tablet 1 tab PO BID 5 Days Qty: 10 0RF Discharge Orders: Discharge ED (Routine); Ordered 10/08/23 Ordered By: Joo Sparks Referrals: Yvonne Ocasio FNP [Primary Care Provider] - Discharge Diet: As Directed Discharge Activity: Increase activity as tolerated Patient Instructions: (ED) Activity Restrictions/Additional Instructions: Call primary care provider to set up an appointment and be referred to OB. Gladis for nausea. Please increase your fluid intake. Return with any new or worsening symptoms. Coding Level of Care Code ED Zigzag Stitcher for Francisco J Waller
[2023-10-08] MEDS: ondansetron 2 mg/ML SDV 2 mL 4 MG IVP (18:33)
[2023-10-08] MEDS: sodium chloride 0.9% 1,000 ML 999 ML IV (18:35)
[2023-10-08 18:40] VITALS: BP 146/104; PULSE 88; O2SAT 98
[2023-10-08 18:42] LABS: Basophils % 0.2 %; Eosinophils % 0.1 %; Hematocrit 40.2 % (36-47); Lymphocytes # 2.2 10^3/uL (0.8-4.8); Lymphocytes % 18.9 %; Mean Corpuscular HGB Conc 34.3 g/dL (30-55); Mean Corpuscular Hemoglobin 29.7 pg (27-33); Mean Corpuscular Volume 86.5 fl (85-98); Monocytes # 0.6 10^3/uL (0.2-0.9); Monocytes % 4.9 %; Neutrophils # 8.94 10^3/uL (1.8-7.7); Neutrophils % 75.6 %; Nucleated Red Blood Cells % 0 %; Platelet Count 491 10^3/cmm (157-399); Red Blood Count 4.65 10^6/uL (3.85-5.65); Red Cell Distribution Width 12.7 % (12.1-15.1); White Blood Count 11.82 10^3/uL (3.29-11.43)
[2023-10-08 18:58] LABS: Alanine Aminotransferase 23 U/L (0-33); Albumin Level 4.6 g/dL (3.5-5.2); Alkaline Phosphatase 65 U/L (35-105); Anion Gap 21.9 (5-19); Aspartate Amino Transferase 22 U/L (0-32); Blood Urea Nitrogen 9 mg/dL (6-20); Calcium 10.1 mg/dL (8.5-10.5); Carbon Dioxide 21 mmol/L (22-29); Chloride 94 mmol/L (98-107); Creatinine Clr Calc Pharmacy 164.2957; Globulin 3.5 g/dL (1.3-4.6); Glomerular Filtration Rate 155.7 mL/min (90-130); Glucose 79 mg/dL (65-115); Lipase 15 U/L (13-60); Osmolality Calculated 274 mOsm/kg (285-295); Potassium 3.9 mmol/L (3.5-5.1); Sodium 133 mmol/L (136-145); Total Protein 8.1 g/dL (6.6-8.7)
[2023-10-08 19:00] VITALS: BP 119/76; PULSE 79; O2SAT 99
[2023-10-08 19:08] LABS: HCG, Serum Qual Positive (Negative)
[2023-10-08 19:30] VITALS: BP 133/52; PULSE 91; O2SAT 98
[2023-10-08 19:41] LABS: Charge for UA Resulting for Rev
[2023-10-08 19:47] LABS: Urine Appearance Cloudy (CLEAR); Urine Color Yellow (Yellow)
[2023-10-08 19:49] LABS: UA Manual Slide Review YES; UA Slide Review UA Slide Review Perf
[2023-10-08 19:56] LABS: Bacteria Urine 3+ /hpf; Mucus Urine 1+ /hpf; Squamous Epithelial Cell Urine 15-25 /hpf (0-5); Transitional Epi Cells Urine 0-4 /hpf; WBC Urine >100 /hpf (0-5)
[2023-10-08 19:57] LABS: Add Urine Culture? Yes
[2023-10-08 20:00] VITALS: BP 120/70; PULSE 83; O2SAT 98
== END 2023-10-08 20:09 | disposition home or self-care (01) ==
PROVIDERS: Emergency Medicine; Emergency Provider Physician Assistant; PCP Nurse Practitioner Family
DX: O26.899 Other specified pregnancy related conditions, unspecified trimester (principal); E86.0 Dehydration; Z87.891 Personal history of nicotine dependence; Z3A.00 Weeks of gestation of pregnancy not specified
CPT/HCPCS: 36415; 80053; 81003; 81015; 83690; 84703; 85025; 87086; 96361; 96374; 99284; J2405; J7030

== ENCOUNTER 2024-09-09 03:16 | Emergency (ER) | payer BC, MEDICAID, SELFPAY ==
[2020-09-26 11:37] VITALS: BP 117/75; BMI 34.4
[2024-09-09 03:29] VITALS: BP 127/63; PULSE 70; RESP 20; TEMP 36.8; O2SAT 100; BMI 27.8
--- NOTE | 2024-09-09 03:30 | W.ED.GENADLT ---
HPI - General Adult General: Chief complaint: Abdominal Pain Stated complaint: Cramping, back pain, rectum pain Time Seen by Provider: 09/09/24 03:25 History of Present Illness: Patient comes in with cramping lower abdominal/back pain that started earlier yesterday evening. States that she has had to go to the restroom a couple times at night secondary to the cramping in her lower pelvis and back. States her last menstrual cycle was 2 months ago. States that she started bleeding tonight and thinks that she is either or starting her menstrual cycle. On physical exam she has lower abdominal tenderness to palpation. Will check labs, CT abdomen pelvis with IV contrast, give IV fluids, treat pain with 50 mg of IV Toradol, treat nausea with 4 mg of IV Zofran, and reassess. Associated symptoms: Deny chest pain, dyspnea or palpitations Related Data Home Medications ?Medication ?Instructions ?Recorded ?Confirmed cranberry extract 300 mg tablet 300 mg PO DAILY 09/01/20 02/06/22 control PO DAILY 12/02/20 02/06/22 Previous Rx's ?Medication ?Instructions ?Recorded amoxicillin 875 mg-potassium 1 tab PO BID 5 days #10 tabs 02/06/22 clavulanate 125 mg tablet ondansetron HCl 4 mg tablet 4 mg PO Q8H #30 tabs 10/08/23 Allergies Allergy/AdvReac Type Severity Reaction Status Date / Time prazosin Allergy Severe ADR-Chest Verified 11/08/22 19:51 Pain Review of Systems Const: Denies: fever(s) Card: Denies: chest pain or palpitations Resp: Denies: dyspnea or productive cough PFSH ED PFSH: Medical History (Updated 09/09/24 @ 05:37 by Tone Carter MD) Psychiatric care Family History Other Cancer Diabetes Social History Smoking and tobacco/nicotine status: former use of tobacco/nicotine Quit status (tobacco/nicotine): has quit using Year quit tobacco: 2020 Second hand smoke exposure: Yes Alcohol intake: never Substance/Drug Use: never Adopted: No Caregiver/support person: No Lives independently: Yes Household members: family Housing: House Marital status: Single Number of children: 0 Number of grandchildren: 0 Highest education level completed: 10th Grade service: No Current occupational status: unemployed Pets and animals: Yes Pets & animals: cat(s) and dog(s) Pets & animal details: gigi stone Leisure activites: other Leisure activities details: cleaning, takes care of her mom Do you think of yourself as: Straight/Heterosexual Current gender identity: Female Marsha/Nondenominational: None Female Reproductive History: Spontaneous abortions: No Physical Exam Const: COMMON NORMALS: patient oriented x3, healthy appearing and alert HENMT: COMMON NORMALS: normocephalic and atraumatic HEAD & SCALP: normocephalic and atraumatic Eye: COMMON NORMALS: EOMs intact bilaterally Neck/C-Spine: COMMON NORMALS: full ROM and supple Resp: COMMON NORMALS: normal respiratory effort, No retractions and No use of accessory muscles Cardio: COMMON NORMALS: regular rate and regular rhythm RATE: regular rate RHYTHM: regular rhythm GI: OTHER: Generalized abdominal tenderness to palpation worse in the lower quadrants Extremity: COMMON NORMALS: normal to inspection and full ROM Neuro: COMMON NORMALS: patient oriented x3 SENSORIUM/ORIENTATION: Yes alert Course Vital Signs: Vital signs: Vital Signs Temperature 98.3 F 09/09/24 03:29 Pulse Rate 64 09/09/24 04:33 Respiratory Rate 15 09/09/24 04:33 Blood Pressure 96/54 09/09/24 04:33 Pulse Oximetry 96 09/09/24 04:33 Oxygen Delivery Me thod Room Air 09/09/24 03:29 MDM - General Adult Medical Decision Making On reassessment I talked with the patient about her test results. Her ultrasound is concerning for incomplete miscarriage. She does have a uterine fibroid as well. I talked with her about getting her follow-up with OB to have a repeat hCG and a repeat ultrasound. Will discharge at this time with precautions to return for worsening or changing symptoms. Lab Data 09/09/24 03:35 09/09/24 03:35 Radiology Impressions Ultrasound 09/09/24 03:53 IMPRESSION: 1. Thickened and heterogeneous endometrium with no definite gestational sac. Short-term follow-up ultrasound and serial beta HCG are recommended. 2. Large, fairly isoechoic mass in the lower uterine segment measuring 11.3 x 7.8 cm. Likely uterine fibroid. 3. No evidence of adnexal mass. Laboratory Results WBC 13.35 10^3/uL (3.29-11.43) H 09/09/24 03:35 RBC 3.98 10^6/uL (3.85-5.65) 09/09/24 03:35 Hgb 12.40 g/dL (11.27-16.99) 09/09/24 03:35 Hct 35.2 % (36-47) L 09/09/24 03:35 MCV 88.4 fl (85-98) 09/09/24 03:35 MCH 31.2 pg (27-33) 09/09/24 03:35 MCHC 35.2 g/dL (30-55) 09/09/24 03:35 RDW 12.7 % (12.1-15.1) 09/09/24 03:35 Plt Count 267 10^3/cmm (157-399) 09/09/24 03:35 MPV 9.9 fL (7.4-10.4) 09/09/24 03:35 Neut % (Auto) 86.5 % 09/09/24 03:35 Lymph % (Auto) 8.4 % 09/09/24 03:35 [place] % (Auto) 4.5 % 09/09/24 03:35 Eos % (Auto) 0.1 % 09/09/24 03:35 Baso % (Auto) 0.1 % 09/09/24 03:35 Neut # (Auto) 11.54 10^3/uL (1.8-7.7) H 09/09/24 03:35 Lymph # (Auto) 1.1 10^3/uL (0.8-4.8) 09/09/24 03:35 [place] # (Auto) 0.6 10^3/uL (0.2-0.9) 09/09/24 03:35 Eos # (Auto) 0.0 10^3/uL (0.0-0.8) 09/09/24 03:35 Baso # (Auto) 0.0 10^3/uL (0.0-0.1) 09/09/24 03:35 Nucleated RBC % (auto) 0 % 09/09/24 03:35 Nucleated RBCs # 0.0 /100WBC 09/09/24 03:35 Sodium 137 mmol/L (136-145) 09/09/24 03:35 Potassium 3.6 mmol/L (3.5-5.1) 09/09/24 03:35 Chloride 100 mmol/L (98-107) 09/09/24 03:35 Carbon Dioxide 22 mmol/L (22-29) 09/09/24 03:35 Anion Gap 18.6 (5-19) 09/09/24 03:35 BUN 5 mg/dL (6-20) L 09/09/24 03:35 Creatinine 0.5 mg/dL (0.5-0.9) 09/09/24 03:35 GFR Calculation 154.3 mL/min (90-130) H 09/09/24 03:35 Glucose 105 mg/dL (65-115) 09/09/24 03:35 Calculated Osmolality 282 mOsm/kg (285-295) L 09/09/24 03:35 Calcium 8.8 mg/dL (8.5-10.5) 09/09/24 03:35 Total Bilirubin 0.9 mg/dL (0.15-1.2) 09/09/24 03:35 AST 17 U/L (0-32) 09/09/24 03:35 ALT 8 U/L (0-33) 09/09/24 03:35 Alkaline Phosphatase 56 U/L (35-105) 09/09/24 03:35 Total Protein 6.4 g/dL (6.6-8.7) L 09/09/24 03:35 Albumin 3.8 g/dL (3.5-5.2) 09/09/24 03:35 Globulin 2.6 g/dL (1.3-4.6) 09/09/24 03:35 Lipase 13 U/L (13-60) 09/09/24 03:35 HCG, Qual Positive (Negative) H 09/09/24 03:35 Ser , Semi-Qnt 8565.00 mIU/mL 09/09/24 03:35 Urine Color [place] (Yellow) A 09/09/24 03:51 Urine Appearance Cloudy (CLEAR) A 09/09/24 03:51 Urine pH 6.0 (5-7) 09/09/24 03:51 Ur Specific [place] 1.035 (1.005-1.030) H 09/09/24 03:51 Urine Protein 2+ (Negative) A 09/09/24 03:51 Urine Glucose (UA) Negative (Normal) 09/09/24 03:51 Urine Ketones 4+ (Negative) 09/09/24 03:51 Urine Blood 3+ (Negative) A 09/09/24 03:51 Urine Nitrate Negative (Negative) 09/09/24 03:51 Urine Bilirubin Negative (Negative) 09/09/24 03:51 Urine Urobilinogen 1.0 mg/dL (Negative) 09/09/24 03:51 Ur Leukocyte Esterase Trace (Negative) A 09/09/24 03:51 Urine RBC >100 /hpf (0-2) H 09/09/24 03:51 Urine WBC 0-5 /hpf (0-5) 09/09/24 03:51 Ur Squamous Epith Cells 11-20 /hpf (0-5) H 09/09/24 03:51 Amorphous Sediment Not Reportable 09/09/24 03:51 Urine Bacteria 2+ /hpf (NONE) H 09/09/24 03:51 Hyaline Casts 1.21 /lpf 09/09/24 03:51 All radiology interpretation(s) finalized by discharge Discharge Plan Discharge Patient Disposition: Home Clinical Impression: Incomplete miscarriage Condition: Stable Prescriptions: No Action cranberry extract 300 mg tablet 300 mg PO DAILY Rx Instructions: administer with a meal control PO DAILY amoxicillin-pot clavulanate 875-125 mg tablet 1 tab PO BID 5 Days Qty: 10 0RF ondansetron HCl 4 mg tablet 4 mg PO Q8H Qty: 30 0RF Discharge Orders: Discharge ED (Routine); Ordered 09/09/24 Ordered By: Tone Carter Referrals: Yvonne Ocasio FNP [Primary Care Provider, Unknown] Patient Instructions: Miscarriage (ED), Patient Portal & [facility] Instructions Print Language: Bengali Coding Level of Care Code ED Scrub Tech for Francisco J Waller
[2024-09-09] MEDS: ondansetron 2 mg/ML SDV 2 mL 4 MG IVP (03:40)
[2024-09-09 03:46] LABS: Hematocrit 35.2 % (36-47); Hemoglobin 12.40 g/dL (11.27-16.99); Mean Corpuscular HGB Conc 35.2 g/dL (30-55); Mean Corpuscular Hemoglobin 31.2 pg (27-33); Mean Corpuscular Volume 88.4 fl (85-98); Nucleated Red Blood Cells % 0 %; Platelet Count 267 10^3/cmm (157-399); Red Blood Count 3.98 10^6/uL (3.85-5.65); White Blood Count 13.35 10^3/uL (3.29-11.43)
[2024-09-09 03:49] LABS: HCG, Serum Qual Positive (Negative)
--- NOTE | 2024-09-09 03:53 | USR_ITS ---
PROCEDURE INFORMATION: Exam: US First Trimester, Transabdominal and US , Transvaginal Exam date and time: 09/09/2024 4:10 AM Age: 24 years old Clinical indication: complicated by abdominal or pelvic pain; Generalized abdominal pain; First trimester (<14 weeks 0 days); Gestational age or lmp: 5w 3 d by reported lmp; ; G1-p0 presenting with spotting and cramping. ; Additional info: Abd pain LABS AND CLINICAL REPORTS: Choriogonadotropin in serum (Serum HCG): 8565 mIU/mL Last menstrual period start date: 08/02/2024 Gestational age (Established): 5 w 3 d Estimated due date (Established): 05/09/2024 TECHNIQUE: Imaging protocol: Real-time transabdominal obstetrical ultrasound of the maternal pelvis and a first trimester , less than 14 weeks 0 days, with image documentation. Transvaginal imaging was used for better evaluation of the fetus, adnexa, and/or cervix. COMPARISON: No relevant prior studies available. FINDINGS: GESTATION: Gestation: No IUP identified. Embryo/ cardiac activity (BPM): N/a BIOMETRY: Gestational age (AUA): No IUP identified. MATERNAL: Uterus: Uterus measures 19.39 cm x 8.68 cm x 5.39 cm. Thickened and heterogeneous endometrium with no definite gestational sac. Large, fairly isoechoic mass in the lower uterine segment measuring 11.3 x 7.8 cm. Cervix: Unremarkable. Endocervical canal is closed. Right ovary/adnexa: Right ovary measures 2.7 cm x 2.1 cm x 1.9 cm. Right ovarian volume is 5.6 mL. Left ovary/adnexa: Left ovary measures 3.7 cm x 2.5 cm x 1.4 cm. Left ovarian volume is 6.8 mL. Intraperitoneal space: No free pelvic fluid. US/US OB <= 14 weeks fetus [id number] IMPRESSION: 1. Thickened and heterogeneous endometrium with no definite gestational sac. Short-term follow-up ultrasound and serial beta HCG are recommended. 2. Large, fairly isoechoic mass in the lower uterine segment measuring 11.3 x 7.8 cm. Likely uterine fibroid. 3. No evidence of adnexal mass.
[2024-09-09 03:59] LABS: Alanine Aminotransferase 8 U/L (0-33); Albumin Level 3.8 g/dL (3.5-5.2); Alkaline Phosphatase 56 U/L (35-105); Anion Gap 18.6 (5-19); Aspartate Amino Transferase 17 U/L (0-32); Blood Urea Nitrogen 5 mg/dL (6-20); Calcium 8.8 mg/dL (8.5-10.5); Carbon Dioxide 22 mmol/L (22-29); Chloride 100 mmol/L (98-107); Creatinine Clr Calc Pharmacy 166.9092; Globulin 2.6 g/dL (1.3-4.6); Glucose 105 mg/dL (65-115); Lipase 13 U/L (13-60); Osmolality Calculated 282 mOsm/kg (285-295); Potassium 3.6 mmol/L (3.5-5.1); Sodium 137 mmol/L (136-145); Total Protein 6.4 g/dL (6.6-8.7)
[2024-09-09 04:03] LABS: Glucose Urine UA Negative (Normal); Nitrate Urine Negative (Negative)
[2024-09-09 04:04] VITALS: RESP 18
[2024-09-09] MEDS: morphine 4 mg/mL SDV 1 mL IVP (04:04)
[2024-09-09 04:08] LABS: Add Urine Microscopic? YES
[2024-09-09 04:15] LABS: Specific Gravity, Urine 1.035 (1.005-1.030)
[2024-09-09 04:33] VITALS: BP 96/54; PULSE 64; RESP 15; O2SAT 96
[2024-09-09 05:48] VITALS: BP 101/57; PULSE 62; RESP 15; O2SAT 98
== END 2024-09-09 05:45 | disposition home or self-care (01) ==
PROVIDERS: Emergency Provider Emergency Medicine; PCP Nurse Practitioner Family
DX: O03.4 Incomplete spontaneous abortion without complication (principal); Z87.891 Personal history of nicotine dependence
CPT/HCPCS: 76801; 80053; 81001; 83690; 84702; 84703; 85025; 87086; 96374; 96375; 99285; J1885; J2270; J2405; J7030

== ENCOUNTER 2024-09-14 12:42 | Outpatient (CLI) | payer BC, MEDICAID, SELFPAY ==
[2020-09-26 11:37] VITALS: BP 117/75; BMI 34.4
== END 2024-09-14 12:43 | disposition home or self-care (01) ==
LOC: LAB 12:43
PROVIDERS: PCP Nurse Practitioner Family; Visit Provider Obstetrics & Gynecology
DX: O03.4 Incomplete spontaneous abortion without complication (principal)
CPT/HCPCS: 36415; 84702; 86850; 86900

== ENCOUNTER → 2024-09-16 15:45 | Outpatient (BNVA) | payer BC, MEDICAID, SELFPAY ==
[2020-09-26 11:37] VITALS: BP 117/75; BMI 34.4
== END ==
PROVIDERS: PCP Nurse Practitioner Family; Visit Provider Obstetrics & Gynecology
DX: O03.4 Incomplete spontaneous abortion without complication (principal)
CPT/HCPCS: 84702

== ENCOUNTER → 2024-11-18 16:39 | Outpatient (BNVA) | payer BC, SELFPAY ==
[2020-09-26 11:37] VITALS: BP 117/75; BMI 34.4
== END ==
PROVIDERS: PCP Nurse Practitioner Family; Visit Provider Obstetrics & Gynecology
DX: Z30.09 Encounter for other general counseling and advice on contraception (principal)
CPT/HCPCS: 81025